=== PATIENT | male | born 1980 | race Caucasian/White ===

== ENCOUNTER → 2024-02-15 06:28 | Day surgery (SDC) | payer OTHER, SELFPAY | LOC: GI 06:28 | PROVIDERS: ATTENDING PHYSICIAN Internal Medicine Gastroenterology | DX: R13.10 Dysphagia, unspecified (principal); K22.2 Esophageal obstruction | CPT/HCPCS: 43249; 88305 ==

== ENCOUNTER 2025-01-17 06:18 | Day surgery (SDC) | payer OTHER, SELFPAY | END 2025-01-17 10:35 | disposition home or self-care (01) | LOC: GI 06:18 | PROVIDERS: ATTENDING PHYSICIAN Internal Medicine Gastroenterology; FAMILY PHYSICIAN Physician Assistant Medical | DX: Z12.11 Encounter for screening for malignant neoplasm of colon (principal); D12.3 Benign neoplasm of transverse colon; D12.4 Benign neoplasm of descending colon; K63.5 Polyp of colon; K64.8 Other hemorrhoids | CPT/HCPCS: 45385; 88305 ==

== ENCOUNTER → 2025-02-10 15:14 | Outpatient (REF) | payer OTHER, SELFPAY | LOC: RAD 15:14 | PROVIDERS: ATTENDING PHYSICIAN Physician Assistant Medical | DX: M54.16 Radiculopathy, lumbar region (principal) | CPT/HCPCS: 72110 ==

== ENCOUNTER → 2025-04-08 08:15 | Outpatient (REF) | payer OTHER, SELFPAY | LOC: MRI 08:15 | PROVIDERS: ATTENDING PHYSICIAN Physician Assistant Medical | DX: T15.90XA Foreign body on external eye, part unspecified, unspecified eye, initial encounter (principal); M54.16 Radiculopathy, lumbar region | CPT/HCPCS: 70030; 72148 ==